=== PATIENT | female | born 1990 | race Caucasian/White ===

== ENCOUNTER 2019-09-25 08:34 | Outpatient (CLI) | payer OTHER, SELFPAY ==
--- NOTE | 2019-09-25 08:40 | ECG_ITS ---
Measurements Intervals Anderson Rate: 137 P: 55 OK: 112 QRS: 9 QRSD: 82 T: 17 QT: 299 QTc: 452 Interpretive Statements SINUS TACHYCARDIA WITH SHORT OK INTERVAL DELAYED PRECORDIAL R/S TRANSITION BORDERLINE ST-T WAVE ABNORMALITY- DIFFUSE LEADS ABNORMAL ECG Electronically Signed On 09-25-2019 10:33:47 MOHS SURGEON/GENERAL DERMATOLOGIST by Madi Woodward D.O.
== END 2019-09-25 08:35 | disposition home or self-care (01) ==
LOC: ANHOUTPT 08:37
PROVIDERS: PCP Physician Assistant; Visit Provider Obstetrics & Gynecology
DX: R00.0 Tachycardia, unspecified (principal); R94.31 Abnormal electrocardiogram [ECG] [EKG]
CPT/HCPCS: 93005

== ENCOUNTER 2019-11-19 23:07 | Inpatient (IN) | payer OTHER, SELFPAY ==
[2019-11-20] VITALS (114 sets, daily range): BP systolic 68–134; BP diastolic 39–99; PULSE 51–111; RESP 16; TEMP 36.8–37.4; O2SAT 79–100
--- NOTE | 2019-11-20 01:05 | LDADM ---
This patient, Ania Stark, was admitted to Labor/Delivery/Recovery 105 on 11/19/19 at 23:07. Plans for labor, pain management and were discussed with patient. Patient/family oriented to hospital policies and general routines including ID bracelet, bed and alarms, visiting hours, pain management, procedures, bathroom and other care routines, personal items, smoking policy, room service/diet and guest tray routines, security routines, and visiting hours. Patient/Family are encouraged to report perceived risks to care and to ask questions if they do not understand what they are told or what they should do. See OBIX for further documentation.
[2019-11-20 01:20] LABS: Basophils Percent Auto 0.1 % (0.2-1.2); Eosinophils Absolute Auto 0.1 K/mm3 (0-0.3); Eosinophils Percent Auto 0.6 % (0-4.4); Hematocrit 33.5 % (37.0-47.0); Hemoglobin 10.9 g/dL (12.0-15.0); Immature Granulocyte Absolute 0.08 K/mm3 (0.00-0.031); Immature Granulocyte Percent A 0.5 % (0-0.5); Lymphocytes Absolute Auto 2.28 K/mm3 (0.9-3.2); Lymphocytes Percent Auto 14.2 % (18.3-44.2); Mean Corpuscular HGB Conc 32.5 g/dl (32-36); Mean Corpuscular Volume 86.1 fl (80-100); Mean Platelet Volume 10.1 fl (7.4-10.4); Monocytes Percent Auto 6.5 % (2.6-8.5); Neutrophils Absolute Auto 12.6 K/mm3 (1.3-6.7); Neutrophils Percent Auto 78.1 % (45.5-73.1); Platelet Count Result 317 k/mm3 (150-375); Red Blood Count 3.89 M/mm3 (4.2-5.4); Red Cell Distribution Width 12.5 % (11.5-14.5); White Blood Count 16.1 K/mm3 (4.5-10.0)
[2019-11-20] MEDS: LACTATED RINGERS 1,000 ML 125 ML IV CONT ×4 (02:58→08:44)
[2019-11-20] MEDS: PHENYLEPHRINE 1,000 MCG/10 ML SYRINGE 100 MCG IV PUSH ×2 (05:05→05:45)
[2019-11-20] MEDS: ONDANSETRON INJ 4 MG/2 ML VIAL IV PUSH (05:47)
[2019-11-20 07:43] LABS: Rapid Plasma Reagin Non-Reactive (NonReactive)
--- NOTE | 2019-11-20 08:13 | WPDOBADMIT ---
Obstetrics - Admit Note Admission Note: AROM clear fluid complete and 0 station vertex. record reviewed. No pertinent additions to the history and/or any subsequent changes in the physical findings that are not consistent with the expected course of the were found. Additions to the history and/or subsequent changes in the physical findings follow. None.
--- NOTE | 2019-11-20 08:36 | PM.OBPRVD ---
OB - Delivery Note Procedure Delivery date: 11/20/19 events: Labor Augmentation Intrapartal events: None Induction method: none Delivery augmentation: rupture of membranes Delivery monitor: external FHT and external uterine Route of delivery: Specimen: Yes Estimated blood loss (mL): 400 Anesthesia type: Epidural Baby Date of : 11/20/19 Time of : 08:24 Weeks of gestation at delivery: 38 gender: Female Weight (pounds): 6 Weight (ounces): 11 presentation: vertex position: Right Occiput Anterior Placenta delivery description: Spontaneous cord vessel description: 3 Vessels and Clamped/Cut score one minute: 8 score five minutes: 9
--- NOTE | 2019-11-20 08:38 | PM.OBDSVD ---
DS: Diagnosis Discharge Diagnosis (1) (normal spontaneous vaginal delivery): Code(s): O80 - Encounter for full-term uncomplicated delivery Status: Acute OB - DS: Summary OB Procedures : Ultrasound OB Procedures Intrapartum: Spontaneous Vag Delivery OB Procedures: : None Peripartum Data Infant Delivery Method: Natural Vaginal Laceration description: None complications: none Time Spent with Patient Time attestation: Total time spent providing and/or coordinating discharge services: DS: Data Data Completed and Pending Labs on day of discharge: Labs from last 24 hours 11/20/19 11/20/19 11/20/19 01:00 01:00 01:00 WBC 16.1 H RBC 3.89 L Hgb 10.9 L Hct 33.5 L MCV 86.1 MCH 28.0 MCHC 32.5 RDW 12.5 Plt Count 317 MPV 10.1 Immature Gran % (Auto) 0.5 Neut % (Auto) 78.1 H Lymph % (Auto) 14.2 L Banks % (Auto) 6.5 Eos % (Auto) 0.6 Baso % (Auto) 0.1 L Lymph # (Auto) 2.28 Banks # (Auto) 1.0 H Eos # (Auto) 0.1 Baso # (Auto) 0.0 Abs Immat Gran (auto) 0.08 H Absolute Neuts (auto) 12.6 H Absolute Nucleated RBC 0.0 Nucleated RBC % 0.0 RPR Non-reactive Blood Type AB Positive Antibody Screen Negative Discharge Plan Discharge Attending physician on discharge: Joshua Peterson Discharging Clinician: Joshua Peterson Patient Disposition: Home, Self-Care Activity: may drive after 2 weeks and pelvic rest Diet: regular Discharge Instructions: Education: Mom and Baby Guide and Preeclampsia Handout Given to: Mother Follow-Up: Call your delivering provider's office for an appointment to be seen in: 6 Weeks Mom [facility] follow-up appointment. Appointment Date/Time: November 22, 2019 at 8:00 am What to expect at your follow-up visit: Physical Assessment Call [phone] if you are unable to keep your appointment time. BREAST CARE: 1. Wear a snug supportive bra. 2. For engorgement discomfort: Breast Feeding: A. Apply warm moist washcloths B. Express milk as needed to relieve engorgement C. Wear loose clothing Bottle Feeding: A. May apply ice packs 3. For sore nipples: A. Identify correct latch-on B. Apply warm moist washcloths before and after nursing C. Air dry nipples after nursing D. May apply Lansinoh cream to nipples EPISIOTOMY/PERINEAL CARE: 1. Until bleeding stops, use your kay bottle after urinating 2. Change your pad frequently throughout the day 3. You may take sitz baths several times a day (fill your bathtub with warm water and soak for 20 minutes.) Do NOT bathe in the water 4. No tub baths until seen by your physician - You may shower ACTIVITY: 1. Rest as much as possible. 2. Do not exercise or lift anything heavier than your baby (such as laundry or other children.) 3. Avoid stairs or driving as much as possible. 4. Do not put anything into the vagina. No douching, tampons, or sexual activity until seen by physician. NOTIFY PHYSICIAN IF YOU HAVE ANY QUESTIONS OR IF ANY OF THE FOLLOWING SYMPTOMS OCCUR: 1. If your episiotomy becomes red, swollen, or more painful than what you have experienced in the hospital. 2. If your vaginal bleeding becomes foul smelling. 3. If your vaginal bleeding becomes more heavy than a period or if your bleeding changes from pink to bright red. However, you may pass an occasional walnut-sized clot once or twice for the first week . 4. If you experience a sharp, shooting pain in you calves. 5. If you discover a hard, reddened area on your breast or if you experience flu-like symptoms. DIET: 1. Eat regular, well-balanced meals. 2. Drink plenty of fluids daily. If , drink to thirst. Stand Alone Forms: General Discharge Information Follow-up/Referrals: Joshua Peterson MD [Physician
[2019-11-20] MEDS: OXYTOCIN 30 UNITS/NS 500 ML 30 UNITS/500 ML BAG 125 UNITS IV CONT (09:05)
[2019-11-20] MEDS: LORATADINE 10 MG TABLET (10:28)
[2019-11-20] MEDS: WITCH HAZEL 40 PADS 1 PAD TOPICAL (10:43)
[2019-11-20] MEDS: BENZOCAINE 20% AER SPR (*SP) 56 GM CAN 1 SPRAY TOPICAL (10:43)
--- NOTE | 2019-11-20 11:07 | PC.NURSE ---
Patient transferred to post room #291 per wheelchair from labor and delivery. Support person present. Oriented to unit, room, information board, rooming in, admission packet and security measures. Patient verbalizes understanding.
[2019-11-20] MEDS: MULTIVIT/MIN/PREN/FOL AC/IRON TABLET 1 TAB PO (13:01)
[2019-11-20] MEDS: IBUPROFEN 600 MG TABLET PO (13:01)
[2019-11-21 05:08] LABS: Hematocrit 30.4 % (37.0-47.0); Hemoglobin 9.9 g/dL (12.0-15.0)
[2019-11-21 07:45] VITALS: BP 108/66; PULSE 56; RESP 16; TEMP 36.6; O2SAT 98
[2019-11-21] MEDS: POLYSACCHARIDE IRON COMPLEX 150 MG CAPSULE PO (08:35)
[2019-11-21] MEDS: MULTIVIT/MIN/PREN/FOL AC/IRON TABLET 1 TAB PO (08:35)
[2019-11-21] MEDS: DOCUSATE SODIUM 100 MG CAPSULE PO (08:35)
--- NOTE | 2019-11-21 11:20 | PC.NURSE ---
Patient instructed on viewing the discharge video Mother & Baby Care, The First Two Weeks online. Patient was given the opportunity and encouraged to ask questions. Patient verbalized understanding of information shared and has been given the mother/baby guide for home reference.
[2019-11-22 08:23] VITALS: BP 119/75; PULSE 68; RESP 16; TEMP 37.3
== END 2019-11-21 11:42 | disposition home or self-care (01) | DRG 807 ==
LOC: ANHLDR 11-20 00:43 → ANHOB2 11-20 11:12
PROVIDERS: Admitting Provider Obstetrics & Gynecology; Visit Provider Obstetrics & Gynecology
DX: O80 Encounter for full-term uncomplicated delivery (principal); Z37.0 Single live birth; Z3A.38 38 weeks gestation of pregnancy
CPT/HCPCS: 36415; 85014; 85018; 85025; 86592; 86850; 86900; 86901; A9270; J2370; J2405; J2590; J2795; J3010; J7120

== ENCOUNTER 2022-06-02 11:22 | Outpatient (CLI) | payer OTHER, SELFPAY ==
--- NOTE | ~2022-06-02 | MMUS_ITS ---
EXAMINATION: MM diagnostic carmela BI w margoth, US breast RT limited HISTORY: Pain and palpable lump in the upper outer quadrant of the right breast TECHNIQUE: Craniocaudal, mediolateral, and mediolateral oblique 3-D tomosynthesis images of the breas ts were performed and synthetic 2-D images were generated. CAD analysis was submitted and interpreted . High resolution limited right breast ultrasound was performed. COMPARISON: None, baseline BREAST PARENCHYMAL COMPOSITION: There are scattered areas of fibroglandular density. FINDINGS: MAMMOGRAPHIC FINDINGS: Right breast: There is a 7 mm obscured, low density mass in the posterior third of the upper outer qu adrant of the breast at the 11:00 location 8 cm from the nipple suspicious calcification or architecture drafter ural distortion are identified. No mammographic correlate is identified for the patient's right breas t pain. Left breast: No suspicious mass, calcification, or architectural distortion are identified to suggest malignancy. ULTRASOUND: There is a 7 mm cyst in the upper outer quadrant of the right breast at the 10:00 location 5 cm from the nipple. No suspicious cystic or solid mass is identified. No sonographic correlate is identified for the patient's right breast pain. IMPRESSION: 1. No suspicious mammographic or sonographic correlate is identified for the patient's right breast p ain Further evaluation at this time should be based on clinical assessment. Continued follow-up physi makayla examination is recommended. A small right breast cyst is noted. 2. Recommend routine screening mammography beginning at age 40. BI-RADS Category 2: Benign finding(s). Reviewed, dictated and finalized at location A. IMPRESSION: 1. No suspicious mammographic or sonographic correlate is identified for the pa nick's right breast pain Further evaluation at this time should be based on cl inical assessment. Continued follow-up physical examination is recommended. A s mall right breast cyst is noted. 2. Recommend routine screening mammography beginning at age 40. BI-RADS Category 2: Benign finding(s).
== END 2022-06-02 11:23 | disposition home or self-care (01) ==
LOC: ANHIMG 11:25
PROVIDERS: Visit Provider Obstetrics & Gynecology Gynecology
DX: N64.4 Mastodynia (principal); N63.11 Unspecified lump in the right breast, upper outer quadrant
CPT/HCPCS: 76642; 77062; 77066; G0279

== ENCOUNTER 2022-08-11 10:57 | Outpatient (CLI) | payer OTHER, SELFPAY ==
[2022-08-11 19:16] LABS: Basophils Percent Auto 0.3 % (0.2-1.2); Eosinophils Absolute Auto 0.1 K/mm3 (0-0.3); Eosinophils Percent Auto 0.6 % (0-4.4); Hematocrit 41.7 % (37.0-47.0); Hemoglobin 13.7 g/dL (12.0-15.0); Immature Granulocyte Absolute 0.03 K/mm3 (0.00-0.031); Immature Granulocyte Percent A 0.4 % (0-0.5); Lymphocytes Absolute Auto 1.38 K/mm3 (0.9-3.2); Lymphocytes Percent Auto 17.7 % (18.3-44.2); Mean Corpuscular HGB Conc 32.9 g/dl (32-36); Mean Corpuscular Hemoglobin 29.6 pg (26-34); Mean Corpuscular Volume 90.1 fl (80-100); Mean Platelet Volume 9.5 fl (7.4-10.4); Monocytes Absolute Auto 0.5 K/mm3 (0.1-0.6); Monocytes Percent Auto 6.4 % (2.6-8.5); Neutrophils Absolute Auto 5.8 K/mm3 (1.3-6.7); Neutrophils Percent Auto 74.6 % (45.5-73.1); Platelet Count Result 266 k/mm3 (150-375); Red Blood Count 4.63 M/mm3 (4.2-5.4); White Blood Count 7.8 K/mm3 (4.5-10.0)
[2022-08-11 19:26] LABS: Alanine Aminotransferase 19 U/L (6-35); Albumin Level 4.5 g/dL (3.5-5.1); Alkaline Phosphatase 41 U/L (38-126); Anion Gap 4 mmol/L (8-16); Aspartate Amino Transferase 42 U/L (14-36); Bilirubin,Total 1.1 mg/dL (0.2-1.3); Blood Urea Nitrogen 18 mg/dL (7-17); Calcium 8.6 mg/dL (8.4-10.2); Carbon Dioxide 29 mmol/L (22-30); Chloride 102 mmol/L (98-107); Estimated Glomerular Filt Rate > 60; Glucose 81 mg/dL (65-110); Potassium 4.1 mmol/L (3.4-5.0); Sodium 135 mmol/L (137-145)
[2022-08-11 19:37] LABS: Free T4 Free Thyroxine 1.37 ng/mL (0.78-2.19); Vitamin D 25 Hydroxy 46.2 ng/mL
[2022-08-16 07:51] LABS: Triiodothyronine T3 Free 3.1 pg/mL (2.3-4.2)
== END 2022-08-11 10:58 | disposition home or self-care (01) ==
LOC: ANHGOSHLAB 10:58
PROVIDERS: PCP Internal Medicine; Visit Provider Nurse Practitioner
DX: F41.9 Anxiety disorder, unspecified (principal)
CPT/HCPCS: 36415; 80053; 82306; 84439; 84443; 84481; 85025

== ENCOUNTER 2022-10-13 15:13 | Emergency (ER) | payer OTHER, SELFPAY ==
[2022-10-13 15:22] VITALS: BP 115/81; PULSE 75; RESP 16; TEMP 36.9; O2SAT 100
--- NOTE | 2022-10-13 15:25 | ED.URI ---
HPI - URI/Sore Throat General Chief Complaint: Upper Respiratory Infection Stated Complaint: SORE THROAT/SWOLLEN GLANDS Time Seen by Provider: 10/13/22 15:29 Source: patient, RN notes reviewed and old records reviewed Mode of arrival: ambulatory Limitations: no limitations History of Present Illness HPI Narrative: 32-year-old female who presents to [facility] with complaints of sore throat for the past 2-3 days. Patient reports that she has increased pain with swallowing and has noted her gland in her neck to be swollen and painful, denies any known fevers, chills or sweats or any body aches. Patient reports that she has had some slight headache, denies any sinus pressure or sinus congestion. She has been taking Ibuprofen for her symptoms.Patient reports that she has been COVID vaccinated MD elicited complaint: sore throat Onset (ago): day(s) (2-3) Able to tolerate fluids by mouth: Yes Exacerbating factors: swallowing Treatments prior to arrival: ibuprofen Related Data Home Medications Medication Instructions Recorded Confirmed alprazolam 0.25 mg tablet 0.25 mg PO DAILY PRN Anxiety 08/11/22 10/13/22 doxylamine succinate 25 mg tablet 25 mg PO QHS PRN Sleep 08/11/22 10/13/22 (Unisom (doxylamine)) Allergies Allergy/AdvReac Type Severity Reaction Status Date / Time No Known Allergies Allergy Verified 10/13/22 15:19 Review of Systems Review of Systems: CONSTITUTIONAL: Denies malaise, chills, sweats, or fever. EYES: Denies visual changes, redness, or discharge. ENT: Reports rhinorrhea, congestion, sinus pain, otalgia, positive for sore throat. CARDIOVASCULAR: Denies chest pain, palpitations, or edema. RESPIRATORY: Reports no cough.? Denies dyspnea. GASTROINTESTINAL: Denies abdominal pain, nausea, vomiting, diarrhea SKIN: Denies rash or itching. MUSCULOSKELETAL: Denies myalgia. NEUROLOGIC: Reports mild headache. All systems reviewed & are unremarkable except as noted in HPI and below PMFSH Past Medical History Medical History Asthma (normal spontaneous vaginal delivery) Surgical History Surgical History History of sleeve gastrectomy Family History Family History Father Hypertension Diabetes mellitus Grandparent Pancreatic cancer Breast cancer Alcoholism Diabetes mellitus Social History Social History Smoking status: Never smoker Alcohol intake: current Alcohol use details: 2-3 drinks per week Substance use: never Lack of Transportation: No Lack of Food: Never True Concerned About Future Housing: No Difficulty Paying Gas/Electric Bills: No Difficulty Paying for Meds: No Currently Unemployed: No Education: Master's Degree or Higher Difficulty w/ Childcare or Family Care: No Spiritual care concerns: No Comments At time of signature, agree with nursing past medical, surgical, social and family history. There is no relevant family history pertinent to the presenting complaint Exam Narrative: GENERAL: Well-appearing, well-nourished, and in no acute distress. HEAD: Normocephalic EYES: PERRLA, conjunctivae clear ENT: Nares clear, turbinates edematous and erythematous, clear discharge. Mucous membranes moist. TM pearly bradshaw with dull light reflex bilaterally; no tragal tenderness. Oropharynx erythematous without lesions. Tonsils red and enlarged and without exudate, no drooling, no hoarseness, no trismus, uvula midline, painful swallowing NECK: Supple. lymphadenopathy CHEST: Clear to auscultation, breath sounds equal. No wheezing, rhonchi, rales, or stridor. No respiratory distress, speaks in full sentences.SAO2 100% on room air HEART: Regular rate and rhythm. No murmur heard. SKIN: Warm, dry, no rash. NEURO: Alert and orie
== END 2022-10-13 15:45 | disposition home or self-care (01) ==
PROVIDERS: Emergency Provider Registered Nurse; PCP Nurse Practitioner
DX: J02.0 Streptococcal pharyngitis (principal)
CPT/HCPCS: 87880; 99213; G0463

== ENCOUNTER 2022-12-19 09:33 | Outpatient (CLI) | payer OTHER, SELFPAY ==
[2022-12-19 10:34] LABS: Basophils Percent Auto 0.1 % (0.2-1.2); Eosinophils Percent Auto 0.2 % (0-4.4); Hematocrit 43.1 % (37.0-47.0); Immature Granulocyte Absolute 0.02 K/mm3 (0.00-0.031); Immature Granulocyte Percent A 0.2 % (0-0.5); Lymphocytes Percent Auto 23.1 % (18.3-44.2); Mean Corpuscular HGB Conc 32.5 g/dl (32-36); Mean Corpuscular Hemoglobin 29.7 pg (26-34); Mean Corpuscular Volume 91.3 fl (80-100); Mean Platelet Volume 9.1 fl (7.4-10.4); Monocytes Absolute Auto 0.6 K/mm3 (0.1-0.6); Monocytes Percent Auto 6.9 % (2.6-8.5); Neutrophils Absolute Auto 5.7 K/mm3 (1.3-6.7); Neutrophils Percent Auto 69.5 % (45.5-73.1); Platelet Count Result 258 k/mm3 (150-375); Red Blood Count 4.72 M/mm3 (4.2-5.4); Red Cell Distribution Width 13.1 % (11.5-14.5); White Blood Count 8.2 K/mm3 (4.5-10.0)
[2022-12-19 10:45] LABS: Alanine Aminotransferase 24 U/L (6-35); Albumin Level 4.7 g/dL (3.5-5.1); Alkaline Phosphatase 43 U/L (38-126); Anion Gap 8 mmol/L (8-16); Aspartate Amino Transferase 29 U/L (14-36); Bilirubin,Total 0.7 mg/dL (0.2-1.3); Blood Urea Nitrogen 16 mg/dL (7-17); Calcium 9.1 mg/dL (8.4-10.2); Carbon Dioxide 28 mmol/L (22-30); Chloride 100 mmol/L (98-107); Estimated Glomerular Filt Rate > 60; Glucose 79 mg/dL (65-110); Potassium 4.1 mmol/L (3.4-5.0); Sodium 136 mmol/L (137-145)
[2022-12-19 10:47] LABS: Hemoglobin A1C 5.1 % (<5.7)
[2022-12-19 11:00] LABS: T4 Thyroxine 8.73 ug/dL (5.53-11.0)
[2022-12-19 11:13] LABS: Total Triiodothyronine (T3) 1.09 NG/ML (0.97-1.69)
[2022-12-19 11:24] LABS: Free T4 Free Thyroxine 1.15 ng/mL (0.78-2.19); Vitamin D 25 Hydroxy 57.9 ng/mL
[2022-12-22 12:24] LABS: Sex Hormone Binding Globulin 73 nmol/L (17-124)
[2022-12-23 12:37] LABS: DHEA-Sulfate 159 mcg/dL (23-266)
[2022-12-25 13:40] LABS: FSH 4.1 mIU/mL (***); LH 1.5 mIU/mL (***); Progesterone 4.7 ng/mL (***); Prolactin 5.6 ng/mL (***); Triiodothyronine T3 Free 3.2 pg/mL (2.3-4.2)
[2022-12-26 08:31] LABS: Testosterone Free 2.1 pg/mL (0.1-6.4); Testosterone Total 24 ng/dL (2-45)
[2022-12-27 22:18] LABS: Estradiol, Ultrasensitive 76 pg/mL
== END 2022-12-19 09:34 | disposition home or self-care (01) ==
LOC: ANHLAB 09:36
PROVIDERS: PCP Nurse Practitioner; Visit Provider Chiropractor
DX: Z00.01 Encounter for general adult medical examination with abnormal findings (principal); E56.8 Deficiency of other vitamins; N95.1 Menopausal and female climacteric states; R53.83 Other fatigue; E53.8 Deficiency of other specified B group vitamins
CPT/HCPCS: 36415; 80053; 82306; 82607; 82627; 82670; 83001; 83002; 83036; 83525; 84144; 84146; 84270; 84402; 84403; 84436; 84439; 84443; 84480; 84481; 85025

== ENCOUNTER 2023-03-01 14:55 | Outpatient (CLI) | payer OTHER, SELFPAY ==
[2023-03-03 10:19] LABS: Sex Hormone Binding Globulin 65 nmol/L (17-124)
[2023-03-04 04:54] LABS: FSH 4.8 mIU/mL (***); Progesterone 0.3 ng/mL (***)
[2023-03-05 12:00] LABS: Testosterone Free 6.2 pg/mL (0.1-6.4); Testosterone Total 76 ng/dL (2-45)
[2023-03-07 19:12] LABS: Estradiol, Ultrasensitive 122 pg/mL
== END 2023-03-01 14:56 | disposition home or self-care (01) ==
LOC: ANHLAB 14:57
PROVIDERS: PCP Nurse Practitioner; Visit Provider Chiropractor
DX: N95.1 Menopausal and female climacteric states (principal); N95.8 Other specified menopausal and perimenopausal disorders
CPT/HCPCS: 36415; 82670; 83001; 84144; 84270; 84402; 84403

== ENCOUNTER 2023-03-20 11:59 | Outpatient (CLI) | payer OTHER, SELFPAY ==
[2023-03-20 13:09] LABS: Albumin Level 4.4 g/dL (3.5-5.1); Anion Gap 7 mmol/L (8-16); Blood Urea Nitrogen 25 mg/dL (7-17); Calcium 8.8 mg/dL (8.4-10.2); Carbon Dioxide 28 mmol/L (22-30); Chloride 103 mmol/L (98-107); Estimated Glomerular Filt Rate > 60; Glucose 86 mg/dL (65-110); Sodium 138 mmol/L (137-145)
[2023-03-20 13:11] LABS: Iron 87 ug/dL (37-170)
[2023-03-25 11:18] LABS: Vitamin B1 13 nmol/L (8-30)
== END 2023-03-20 12:00 | disposition home or self-care (01) ==
PROVIDERS: PCP Nurse Practitioner; Visit Provider Surgery Plastic and Reconstructive Surgery
DX: R63.4 Abnormal weight loss (principal)
CPT/HCPCS: 36415; 80048; 82040; 83540; 84134; 84425

== ENCOUNTER 2023-04-06 01:12 | Day surgery (SDC) | payer OTHER, SELFPAY ==
[2023-03-28 15:59] VITALS: BMI 26.4
--- NOTE | 2023-03-28 16:21 | PC.NURSE ---
Report to the Outpatient Waiting Room, entrance under the green pavilion located off [facility], at 0600 on 04-06-23. Planned Procedure Time: 0730. Time changes happen often and if your time is changed the preop area will call you the afternoon before. - You and your visitor will be asked to self-screen and do not enter if you have any COVID symptoms. - A mask is optional within the hospital at this time. Patients may have clear liquids (water, carbonated beverages, clear teas, apple juice) until 3 hours prior to surgery with a maximum of 20 ounces. 0430 - No food from midnight until time of surgery - Infants may have breast milk until 4 hours before surgery, formula 6 hours prior to surgery. - Children will be allowed to drink immediately following surgery. If applicable, please bring a bottle or sippy cup to assist with drinking. Juice, water, soda, and popsicles are readily available. For infants on formula, please bring formula the day of surgery. Pacifiers are allowed. Take the following medications with a SIP of water the morning of surgery: sertraline, xanax if needed DO NOT STOP ANY OF YOUR OTHER PRESCRIPTION MEDICATIONS PRIOR TO SURGERY ?EXCEPT THE FOLLOWING Medications to discontinue per physician: N/A Please no make-up, nail togolese, hairspray, perfume, deodorant, or body powder the day of surgery. No jewelry (including any body piercings) or valuables the day of surgery, leave them at home. Please take a shower or bath the night before, or the morning of, surgery with an antibacterial soap. Wear comfortable, loose fitting clothing. Children are encouraged to wear pajamas. - Jewelry must be removed prior to entering the operating room. Rings and piercings that are not removed may be cut off. - The hospital will not accept responsibility for valuables. - Please leave all valuables, including medications, at home the day of surgery. If you are going home after surgery, a licensed car driver must drive you home. - NO public transportation without another adult if you receive anesthesia. - We recommend that an adult stay with you for 24 hours following discharge. - We also recommend that you do not drive, make important decision, drink alcoholic beverages, or take any drugs that were not prescribed by your health care provider for at least 24 hours after your discharge time. For Pediatric surgeries, we recommend two adults accompany the child home. Follow any additional instructions given to you from your surgeon. If you or anyone in your household have experienced Covid symptoms in the past week, please notify your surgeon or the nurse liaison at the phone number below for possible testing. Telephone instructions given to Ania Stark and asked if any additional questions and then verbalized understanding. Patient advised to call surgeon office or pre surgery nurse liaison [phone] if any additional questions.
[2023-04-06] VITALS (10 sets, daily range): BP systolic 95–108; BP diastolic 55–73; PULSE 57–91; RESP 15–20; TEMP 36.6–37.7; O2SAT 94–100; BMI 25.7
[2023-04-06 06:41] LABS: Urine Cotinine NEGATIVE
--- NOTE | 2023-04-06 06:46 | WPDHPUPDATE1 ---
History and Physical Update Update Date/Time: 04/06/23 06:46 History and Physical has been reviewed, including an updated exam of the patient. There are NO changes in the patient's condition. Risks, benefits, and alternatives have been discussed and questions answered. Patient agrees to proceed with procedure.
--- NOTE | 2023-04-06 06:46 | W.PM.PROC2 ---
Procedure Note - Detailed Date of Procedure 04/06/23 Pre-op Diagnosis Skin Laxity Post-op Diagnosis Same Procedure Performed Progressive tension abdominoplasty Surgeon Conrado Martins MD Anesthesia General Findings Tissue removed: 1471 grams Lipoaspirate: 100 cc Description of Procedure They are here today for abdominoplasty. Previously and again today the risks, benefits, alternatives were discussed in extensive detail. I wanted them to be very realistic about the risks involved as well as expectations. We discussed aftercare and what to monitor for. I was very upfront about the risks of wound breakdown leading to loss of skin, open wounds, and need for additional procedures with permanent abdominal deformity. We discussed DVT/PE risks and management. Made sure answered all of their questions to their satisfaction today and consent was obtained. They were marked in the preoperative holding area with their verification. The patient was taken to the operating room placed supine on the operating table. Anesthesia was provided by anesthesiology. They were prepped and draped in a standard sterile fashion. A surgical time-out was taken. I placed the patient in a flexed position to verify the upper and lower markings would reach. I then placed supine. A thorough abdominal examination was completed. Stab incisions were made and tumescent solution infiltrated. A 10 blade was used to make the upper incision. I continued dissection down to the level of fascia. Elevated just what was necessary for repair contouring of the abdomen. I then again flexed the bed to verify the upper skin flap would reach the lower markings without tension. Once verified I placed her supine once again and a 10 blade used to make the lower incision. I elevated up to level the umbilicus and left the umbilicus intact on a well-vascularized stalk. The intervening tissue was removed. A 2 mm blunt cannula with 0.5% bupivicaine was injected deep to the fascia bilaterally. I plicated the diastasis recti using 0 PDO stratafix barbed suture. This was in 2 separate layers using 2 separate sutures as well. I repaired around the umbilicus leaving plenty of room for well-vascularized stalk of the umbilicus with 2-0 PDS. I also repaired lateral to the rectus using two layers of 0 PDO stratafix. The patient was flexed and starting from superior to inferior began plication using 2-0 Vicryl to obliterate all space in a standard progressive tension fashion. At the umbilicus I marked out the location of the skin and inset this with 3-0 Monocryl and 4-0 Vicryl. I continued the remainder of the plication using 2-0 Vicryl until I reached my lower planned scar line. I trimmed any excess skin of the upper flap making sure this was a tension-free closure. Low volume suction lipectomy was completed with a 3mm multihole cannula for touch up contouring. I then approximated using a 3 point suture with 2-0 Vicryl followed by 3-0 stratafix ,running subcuticular 4-0 Monocryl, and tissue glue. Fluffs and an abdominal binder were placed. The patient was transferred to the bed in a flexed position. Awoken and taken to the PACU without difficulty. All instrument and sponge counts were correct at the end of the case. Estimated Blood Loss 75 Drains No Packing No Pathology None sent Complications No immediate complications Condition Stable Disposition PACU
[2023-04-06] MEDS: LACTATED RINGERS 1,000 ML 30 ML IV CONT ×2 (07:04→10:27)
--- NOTE | 2023-04-06 07:08 | WPDANESEPPF ---
Anes - Initial Pre Proc Eval Procedure: Operation Date: 04/06/23 07:30 Proposed Procedures p Abdominoplasty - Conrado Martins MD Date/Time: 04/06/23 07:08 Surgeon: Conrado Martins MD Pre Op Diagnosis: Skin Laxity Patient Data Age: 32 Gender: F Height: 1.63 m Weight: 69.85 kg Allergies Allergy/AdvReac Type Severity Reaction Status Date / Time No Known Allergies Allergy Verified 03/28/23 15:52 Home Medications Medication Instructions Recorded Confirmed Type alprazolam 0.25 mg tablet 0.25 mg PO DAILY PRN Anxiety 08/11/22 03/28/23 History doxylamine succinate 25 mg tablet 25 mg PO QHS Sleep 08/11/22 03/28/23 History (Unisom (doxylamine)) sertraline 50 mg tablet 50 mg PO DAILY #90 tabs 03/12/23 03/28/23 Rx levonorgestrel 21 mcg/24 hours (8 1 device intrauterine ONCE 03/28/23 03/28/23 History yrs) 52 mg intrauterine device (Mirena) linaclotide 290 mcg capsule 290 mcg PO DAILY 03/28/23 03/28/23 History (Linzess) Laboratory Tests 04/06/23 06:18 Cotinine Negative Patient hx anesthesia problems: none Family hx anesthesia problems: none Results Review: All pre-operative results and documents have been reviewed as part of the pre-operative evaluation. [facility] Past Medical History Medical History Asthma (normal spontaneous vaginal delivery) Surgical History Surgical History History of sleeve gastrectomy Family History Family History Father Hypertension Diabetes mellitus Grandparent Pancreatic cancer Breast cancer Alcoholism Diabetes mellitus Social History Social History Smoking status: Never smoker Second hand tobacco smoke exposure: No Alcohol intake: current Alcohol use details: occasionally Substance use: never Substance use type: does not use Lack of Transportation: No Lack of Food: Never True Concerned About Future Housing: No Difficulty Paying Gas/Electric Bills: No Difficulty Paying for Meds: No Currently Unemployed: No Education: Master's Degree or Higher Difficulty w/ Childcare or Family Care: No Living arrangements: with family Spiritual care concerns: No Anes - Eval Final PreProcedure Day of Procedure 04/06/23 07:08 Patient weight: normal Heart: regular rate and rhythm Lungs: clear to auscultation Airway: Mallampati scale class II Neurological: alert and oriented Last oral intake: >/= 8 hours ASA classification: II Emergent: no Anesthetic plan: proceed Anesthesia type and monitoring: general ETT and standard monitoring Results Review: All pre-operative results and documents have been reviewed as part of the pre-operative evaluation. Informed Consent: The patient's anesthetic plan and its attendant risks and benefits were discussed with the patient/family/POA. Questions were solicited and answers provided to the satisfaction of the patient/family/POA.
[2023-04-06] MEDS: ceFAZolin 2 GM/D5W 50 ML 2 GM/50 ML BAG IVPB (07:30)
[2023-04-06] MEDS: SCOPOLAMINE 1.5 MG PATCH TRANSDERM (08:00)
[2023-04-06] MEDS: fentaNYL CITRATE INJ (*CRX) 100 MCG/2 ML VIAL 25 MCG IV PUSH ×6 (10:47→11:48)
--- NOTE | 2023-04-06 11:58 | PC.NURSE ---
This patient, Ania Stark, was received from PACU via bed on 04/06/23 at 1158. Patient oriented to unit policies and routines.
[2023-04-06] MEDS: carisoprodoL (*CRX) 350 MG TABLET PO ×2 (12:36→19:29)
[2023-04-06] MEDS: LACTATED RINGERS 1,000 ML 125 ML IV CONT (12:37)
[2023-04-06] MEDS: KETOROLAC 10 MG TABLET PO ×2 (13:50→19:29)
[2023-04-06] MEDS: oxyCODONE/ACETAMINOPHEN (*CRX) 5-325 MG TABLET PO ×2 (15:58→21:28)
[2023-04-06] MEDS: ENOXAPARIN 40 MG/0.4 ML SYRINGE SUB-Q (15:58)
[2023-04-06] MEDS: SERTRALINE HCL 50 MG TABLET PO (21:28)
[2023-04-06] MEDS: DOCUSATE SODIUM 100 MG CAPSULE PO (21:28)
[2023-04-07 01:30] VITALS: BP 84/44; PULSE 53; RESP 16; TEMP 36.6
[2023-04-07] MEDS: carisoprodoL (*CRX) 350 MG TABLET PO ×2 (01:37→08:22)
[2023-04-07] MEDS: KETOROLAC 10 MG TABLET PO ×2 (01:37→08:22)
[2023-04-07] MEDS: oxyCODONE/ACETAMINOPHEN (*CRX) 5-325 MG TABLET PO ×3 (03:33→10:11)
[2023-04-07 04:20] VITALS: BP 99/55; PULSE 53; RESP 16; TEMP 36.1
--- NOTE | 2023-04-07 07:21 | WPDPN ---
Progress Note: A&P Assessment and Plan (1) Skin laxity: Code(s): L57.4 - Cutis laxa senilis Status: Acute Plan Doing well after progressive tension abdominoplasty. Will plan for discharge home. Today we had a lengthy discussion about the care. Activity limitations. What to monitor for. What is an emergency and when to dial 911/ proceed to the ER. Call with all other questions or concerns. Will see her back. Subjective Date/time seen: 04/07/23 07:21 Interval history: Doing well after progressive tension abdominoplasty. No n/v. No f/c. No SOB. No CP. No calf tenderness. Review of Systems Review of Systems: All systems reviewed & are unremarkable except as noted in HPI and below Exam Narrative: Alert & Oriented NOD Respiratory unlabored Abdomen is healing well. No signs of infection. No hematoma. No seroma. Good color and capillary refill. No calf tenderness. Negative Mandy's Objective Data Vital Signs Vital Signs: Vital Signs - 24 hr 04/06/23 10:27 04/06/23 10:40 04/06/23 10:55 Temperature 37.3 C Pulse Rate 82 91 64 Respiratory Rate 20 16 16 Blood Pressure 100/59 L 107/70 106/63 Pulse Oximetry 100 96 97 Oxygen Delivery Simple Face Mask Simple Face Mask Simple Face Mask Oxygen Flow Rate 6 6 6 04/06/23 11:10 04/06/23 11:25 04/06/23 11:40 Temperature Pulse Rate 70 83 58 L Respiratory Rate 17 15 19 Blood Pressure 104/65 101/68 108/73 Pulse Oximetry 94 95 95 Oxygen Delivery Room Air Room Air Room Air Oxygen Flow Rate 04/06/23 12:05 04/06/23 16:00 04/06/23 19:30 Temperature 37.7 C H 36.6 C Pulse Rate 66 74 Respiratory Rate 16 18 18 Blood Pressure 99/69 L 100/55 L 95/68 L Pulse Oximetry 96 Oxygen Delivery Oxygen Flow Rate 04/07/23 01:30 04/07/23 04:20 Temperature 36.6 C 36.1 C L Pulse Rate 53 L 53 L Respiratory Rate 16 16 Blood Pressure 84/44 L 99/55 L Pulse Oximetry Oxygen Delivery Oxygen Flow Rate Intake/Output Intake/Output: Intake & Output 04/04/23 04/05/23 04/06/23 04/07/23 23:59 23:59 23:59 23:59 Intake Total 1200 Output Total 385 Balance 815 Meds/Results Medications: Active Medications Generic Name Dose Route Start Last Admin Trade Name Jaimie PRN Reason Stop Dose Admin Carisoprodol 350 mg 04/06/23 12:00 04/07/23 01:37 Carisoprodol (*Crx) 350 Mg Tablet PO 350 mg Q6HR ZEHRA Administration Diazepam 5 mg 04/06/23 10:32 Diazepam (*Crx) 5 Mg Tablet PO TID PRN Anxiety Docusate Sodium 100 mg 04/06/23 21:00 04/06/23 21:28 Docusate Sodium 100 Mg Capsule PO 100 mg Q12HR [facility] Administration Enoxaparin Sodium 40 mg 04/06/23 16:00 04/06/23 15:58 Enoxaparin 40 Mg/0.4 Ml Syringe SUB-Q 40 mg DAILY [facility] Administration Ketorolac Tromethamine 10 mg 04/06/23 12:00 04/07/23 01:37 Ketorolac 10 Mg Tablet PO 04/08/23 06:01 10 mg Q6HR [facility] Administration Linaclotide 290 mcg 04/07/23 09:00 Linaclotide 145 Mcg Capsule PO 05/07/23 08:59 DAILY [facility] Morphine Sulfate 2 mg 04/06/23 10:32 Morphine Sulfate (*Crx) 2 Mg/Ml Inj IV PUSH Q2H PRN Pain Ondansetron HCl 4 mg 04/06/23 10:32 Ondansetron Inj 4 Mg/2 Ml Vial IV PUSH Q6H PRN Nausea Oxycodone/Acetaminophen 1 - 2 tablet 04/06/23 10:32 04/07/23 04:21 Oxycodone/Acetaminophen (*Crx) 5-325 Mg Tablet PO 1 tablet Q6H PRN Administration Pain Rated 3-10 Sertraline HCl 50 mg 04/06/23 21:00 04/06/23 21:28 Sertraline Hcl 50 Mg Tablet PO 50 mg HS ZEHRA Administration
--- NOTE | 2023-04-07 07:23 | PM.DS ---
DS: Admitting Diagnosis Discharge Date 04/07/2023 Admitting Diagnosis Skin laxity DS: Discharge Diagnosis Discharge Diagnosis (1) Skin laxity: Code(s): L57.4 - Cutis laxa senilis Status: Acute DS: Summary Hospital Course Hospital Course: Admitted after progressive tension abdominoplasty. Postoperatively has done well and will discharge home. Time Spent with Patient Time attestation: Total time spent providing and/or coordinating discharge services: Exam Narrative: Alert & Oriented NOD Respiratory unlabored Abdomen is healing well. No signs of infection. No hematoma. No seroma. Good color and capillary refill. No calf tenderness. Negative Mandy's Discharge Plan Discharge Patient Disposition: Home, Self-Care Discharge Instructions: POST OPERATIVE DISCHARGE INSTRUCTIONS CONRADO MARTINS M.D. [facility] PLAST[facility] [address] [place] [address] [address] for 24 hours after anesthesia and while you are taking pain medication. Take all prescribed medication as directed Diet as tolerated. No lifting or activity that raises blood pressure for 48 hours. Regular walking / ambulation. May shower 24 hours after surgery. Once you shower do not take pain medication before showering as the combination of medication and heat may cause you to feel dizzy or pass out. No pools or tubs for 2 weeks. Slowly stand up straight as tolerated. No straining or lifting more than 20 pounds. If no bowel movement within 24 hours may use laxative. Call with any questions or concerns. Dressing Care: Continue abdominal binder / foam 23 hours per day. If you have any questions or concerns, please call the office . If it is after hours you will be directed to the infection preventionist exchange. Shortness of breath, chest pain, or other medical emergency dial 911 / proceed to the Emergency Room. Remove the Scopolamine patch that was placed behind your ear in 72 hours or less. Wash your hands after touching. Stand Alone Forms: General Discharge Instructions Follow-up/Referrals: Conrado Martins MD [Physician] - 1 Week Discharge Medications: Continued Mirena 21 mcg/24 hours (8 yrs) 52 mg Intrauterine Device 1 device INTRAUTERINE ONCE Rx Instructions: as a single dose Linzess 290 mcg Capsule 290 mcg PO DAILY sertraline 50 mg tablet 50 mg PO DAILY Qty: 90 1RF Rx Instructions: takes HS Held alprazolam 0.25 mg tablet 0.25 mg PO DAILY PRN (Reason: Anxiety) Hold Instructions: Resume on 05/18/23. Unisom (doxylamine) 25 mg tablet 25 mg PO QHS Hold Instructions: Resume on 05/18/23.
[2023-04-07 08:10] VITALS: BP 105/68; PULSE 78; RESP 18; TEMP 36.8
[2023-04-07] MEDS: LINACLOTIDE 145 MCG CAPSULE 290 MCG PO (08:21)
[2023-04-07] MEDS: DOCUSATE SODIUM 100 MG CAPSULE PO (08:22)
== END 2023-04-07 12:00 | disposition home or self-care (01) ==
LOC: ANHSURGERY 11:08 → ANHOB2 11:57
PROVIDERS: PCP Nurse Practitioner; Visit Provider Surgery Plastic and Reconstructive Surgery
PROC: (CPT 15830; principal; 2023-04-06 07:30)
DX: Z41.1 Encounter for cosmetic surgery (principal); L57.4 Cutis laxa senilis; Z98.84 Bariatric surgery status
CPT/HCPCS: 15830; 15847; 80307; 99199; A9270; J0171; J0690; J1100; J1170; J1650; J2250; J2405; J2704; J3010; J7120

== ENCOUNTER 2023-12-21 14:36 | Outpatient (CLI) | payer OTHER, SELFPAY ==
[2023-12-21 15:27] LABS: Basophils Percent Auto 0.1 % (0.2-1.2); Eosinophils Absolute Auto 0.1 K/mm3 (0-0.3); Eosinophils Percent Auto 1.3 % (0-4.4); Hematocrit 43.5 % (37.0-47.0); Hemoglobin 13.9 g/dL (12.0-15.0); Immature Granulocyte Absolute 0.02 K/mm3 (0.00-0.031); Immature Granulocyte Percent A 0.3 % (0-0.5); Lymphocytes Absolute Auto 2.27 K/mm3 (0.9-3.2); Lymphocytes Percent Auto 28.9 % (18.3-44.2); Mean Corpuscular Hemoglobin 29.1 pg (26-34); Mean Platelet Volume 9.7 fl (7.4-10.4); Monocytes Absolute Auto 0.5 K/mm3 (0.1-0.6); Monocytes Percent Auto 6.9 % (2.6-8.5); Neutrophils Absolute Auto 4.9 K/mm3 (1.3-6.7); Neutrophils Percent Auto 62.5 % (45.5-73.1); Platelet Count Result 265 k/mm3 (150-375); Red Blood Count 4.78 M/mm3 (4.2-5.4); Red Cell Distribution Width 13.2 % (11.5-14.5); White Blood Count 7.9 K/mm3 (4.5-10.0)
[2023-12-21 15:38] LABS: Alanine Aminotransferase 28 U/L (6-35); Albumin Level 4.8 g/dL (3.5-5.1); Alkaline Phosphatase 44 U/L (38-126); Anion Gap 10 mmol/L (4-12); Aspartate Amino Transferase 32 U/L (14-36); Bilirubin,Total 0.6 mg/dL (0.2-1.3); Blood Urea Nitrogen 24 mg/dL (7-17); Calcium 9.5 mg/dL (8.4-10.2); Carbon Dioxide 23 mmol/L (22-30); Chloride 108 mmol/L (98-107); Cholesterol 159 mg/dL (0-200); Estimated Glomerular Filt Rate > 60; Glucose 83 mg/dL (65-110); HDL Direct 71 mg/dL; Potassium 3.7 mmol/L (3.4-5.0); Sodium 141 mmol/L (137-145); Triglycerides 106 mg/dL (<150)
[2023-12-21 15:49] LABS: LDL Cholesterol Direct 78 mg/dL
[2023-12-22 06:33] LABS: Progesterone 4.1 ng/mL
[2023-12-23 06:43] LABS: FSH 2.6 mIU/mL
[2023-12-24 15:19] LABS: CA-125 11 U/mL (<35)
[2023-12-26 15:27] LABS: Testosterone Free 5.7 pg/mL (0.1-6.4); Testosterone Total 68 ng/dL (2-45)
[2024-01-02 19:48] LABS: Estriol <0.10 ng/mL
== END 2023-12-21 14:37 | disposition home or self-care (01) ==
PROVIDERS: PCP Nurse Practitioner; Referring Provider Chiropractor; Visit Provider Nurse Practitioner
DX: K59.00 Constipation, unspecified (principal); N95.1 Menopausal and female climacteric states; Z13.220 Encounter for screening for lipoid disorders; Z80.41 Family history of malignant neoplasm of ovary
CPT/HCPCS: 36415; 80053; 80061; 82677; 83001; 84144; 84402; 84403; 85025; 86304